=== PATIENT | female | born 1965 | race Caucasian/White ===

== ENCOUNTER 2018-01-27 14:23 | Emergency (ER) | payer OTHER ==
[~2018-01-27] VITALS: Ht 172.7 cm; Wt 98.5 kg
[2018-01-27 14:53] VITALS: BP 167/85; PULSE 104; RESP 20; TEMP 99.1; O2SAT 99
[2018-01-27] MEDS ORDERED: VORT1TAB PO (15:05)
--- NOTE | 2018-01-27 15:24 | PD ---
HPI Chief Complaint: Psychiatric Symptoms Time Seen by Provider: 15:06 Travel History International Travel<30 days: No Contact w/Intl Traveler<30days: No Traveled to known affect area: No History of Present Illness HPI 52-year-old female with history of type type 2 diabetes treated with Triceba, and Humalog as well as hypertension treated with Valsarten, comes into the emergency department voluntarily for psychiatric evaluation for feelings of anxiety and depression. She states she has been fighting these feelings for quite some time, but has been worse in the last week and a half. Patient states she saw her primary care physician 2 days ago was started on Trilexa. Patient texted some questionable text to her boyfriend who then had the police to a wellness visit. Patient agreed to come here voluntarily and denied suicidal ideations at this time. She denies any other acute medical issues. She is allergic to penicillin PFSH Past Medical History Anxiety: Yes Depression: Yes ?: Unknown LMP: 6 years ago Social History Alcohol Use: Yes (socially) Tobacco Use: No Substance Use: No Allergies-Medications (Allergen,Severity, Reaction): Coded Allergies: Penicillins (Verified Allergy, Severe, Anaphylaxis, 01/27/18) Reported Meds & Prescriptions Reported Meds & Active Scripts Active Reported Trintellix (Vortioxetine) 5 Mg Tab 5 Mg PO DAILY Review of Systems Except as stated in HPI: all other systems reviewed are Neg General / Constitutional: No: Fever Eyes: No: Visual changes HENT: No: Headaches Cardiovascular: No: Chest Pain or Discomfort Respiratory: No: Shortness of Breath Gastrointestinal: No: Abdominal Pain Genitourinary: No: Dysuria Musculoskeletal: No: Pain Skin: No Rash Neurologic: No: Weakness Psychiatric: Positive: Anxiety, Depression, No: Suicidal Ideations, Homicidal Ideation Endocrine: No: Polydipsia Hematologic/Lymphatic: No: Easy Bruising Physical Exam Narrative GENERAL: Patient appears anxious and mildly tearful. SKIN: Warm and dry. Normal color. Normal turgor. HEAD: Atraumatic. Normocephalic. EYES: Pupils equal and round. No scleral icterus. No injection or drainage. ENT: No nasal bleeding or discharge. Mucous membranes pink and moist. Pharynx is clear. Airways patent NECK: Trachea midline. Supple and nontender. CARDIOVASCULAR: Regular rate and rhythm. RESPIRATORY: No accessory muscle use. Clear to auscultation. Breath sounds equal bilaterally. GASTROINTESTINAL: Abdomen soft, non-tender, nondistended. Hepatic and splenic margins not palpable. MUSCULOSKELETAL: Extremities without clubbing, cyanosis, or edema. No obvious deformities. NEUROLOGICAL: Awake and alert. No obvious cranial nerve deficits. Motor grossly within normal limits. Five out of 5 muscle strength in the arms and legs. Normal speech. PSYCHIATRIC: Appropriate mood and affect; insight and judgment normal. Data Data Last Documented VS Vital Signs Date Time Temp Pulse Resp B/P (MAP) Pulse Ox O2 Delivery O2 Flow Rate FiO2 01/27/18 14:53 99.1 104 20 167/85 (112) 99 Orders Orders Complete Blood Count With Diff (01/27/18 15:19) Comprehensive Metabolic Panel (01/27/18 15:19) Thyroid Stimulating Hormone (01/27/18 15:19) Urinalysis - C+S If Indicated (01/27/18 15:19) Psych Screen (01/27/18 15:19) Drug Screen, Random Urine (01/27/18 15:19) Alcohol (Ethanol) (01/27/18 15:19) Urine Culture (01/27/18 15:24) Nitrofurantoin Monohyd Macrocr (Macrobid (01/27/18 16:30) Ceftriaxone Inj (Rocephin Inj) (01/27/18 16:45) Lidocaine 1% Inj (50 Ml) (Xylocaine 1% I (01/27/18 16:45) Diet Diabetic (01/27/18 Dinner) Labs Laboratory Tests Test 01/27/18 15:24 White Blood Count 4.6 TH/MM3 Red Blood Count 5.92 MIL/MM3 Hemoglobin 14.9 GM/DL Hematocrit 44.3 % Mean Corpuscular Volume 74.8 FL Mean Corpuscular Hemoglobin 25.2 PG Mean Corpuscular Hemoglobin Concent 33.7 % Red Cell Distribution Width 15.5 % Platelet Count 217 TH/MM3 Mean Platelet Volume 7.9 FL Neutrophils (%) (Auto) 66.2 % Lymphocytes (%) (Auto) 22.6 % Monocytes (%) (Auto) 8.5 % Eosinophils (%) (Auto) 2.2 % Basophils (%) (Auto) 0.5 % Neutrophils # (Auto) 3.0 TH/MM3 Lymphocytes # (Auto) 1.0 TH/MM3 Monocytes # (Auto) 0.4 TH/MM3 Eosinophils # (Auto) 0.1 TH/MM3 Basophils # (Auto) 0.0 TH/MM3 CBC Comment DIFF FINAL Differential Comment Urine Color YELLOW Urine Turbidity HAZY Urine pH 5.0 Urine Specific [place] 1.029 Urine Protein 30 mg/dL Urine Glucose (UA) NEG mg/dL Urine Ketones TRACE mg/dL Urine Occult Blood NEG Urine Nitrite POS Urine Bilirubin NEG Urine Urobilinogen 2.0 MG/DL Urine Leukocyte Esterase LARGE Urine RBC 7 /hpf Urine WBC 97 /hpf Urine Squamous Epithelial Cells 2 /hpf Urine Amorphous Sediment RARE Urine Bacteria MANY /hpf Urine Hyaline Casts 7 /lpf Urine Mucus MANY /lpf Microscopic Urinalysis Comment CULTURE INDICATED Blood Urea Nitrogen 14 MG/DL Creatinine 0.79 MG/DL Random Glucose 99 MG/DL Total Protein 7.8 GM/DL Albumin 4.2 GM/DL Calcium Level 9.5 MG/DL Alkaline Phosphatase 119 U/L Aspartate Amino Transf (AST/SGOT) 20 U/L Alanine Aminotransferase (ALT/SGPT) 27 U/L Total Bilirubin 0.4 MG/DL Sodium Level 143 MEQ/L Potassium Level 3.7 MEQ/L Chloride Level 109 MEQ/L Carbon Dioxide Level 19.9 MEQ/L Anion Gap 14 MEQ/L Estimat Glomerular Filtration Rate 77 ML/MIN Thyroid Stimulating Hormone 3rd Gen 1.320 uIU/ML Urine Opiates Screen NEG Urine Barbiturates Screen NEG Urine Amphetamines Screen NEG Urine Benzodiazepines Screen NEG Urine Cocaine Screen NEG Urine Cannabinoids Screen NEG Ethyl Alcohol Level LESS THAN 3 MG/DL MDM Medical Decision Making Medical Screen Exam Complete: Yes Emergency Medical Condition: Yes Differential Diagnosis Anxiety. Depression. Need for psychiatric evaluation Narrative Course Psychiatric labs ordered per protocol. Psych screen is ordered. CBC is unremarkable. CMP showed no significant findings. Urinalysis shows signs of infection with culture pending Patient is given Rocephin 1 g IM. Patient is medically cleared for psychiatric evaluation Diagnosis Primary Impression: Urinary tract infection Qualified Codes: N30.00 - Acute cystitis without hematuria Additional Impression: Medical clearance for psychiatric admission Patient Instructions: Dysuria (ED), General Instructions Condition: Stable Neville Marcus Jan 27, 2018 15:24
[2018-01-27 16:08] LABS: BASOPHIL % 0.5 % (0.0-2.0); EOSINOPHIL # 0.1 TH/MM3 (0-0.4); EOSINOPHIL % 2.2 % (0.0-4.0); HEMATOCRIT 44.3 % (35.0-46.0); HEMOGLOBIN 14.9 GM/DL (11.6-15.3); LYMPH % 22.6 % (9.0-44.0); MEAN CELL VOLUME 74.8 FL (80.0-100.0); MEAN CORPUSCULAR HEMOGLOBIN 25.2 PG (27.0-34.0); MEAN CORPUSCULAR HGB CONC 33.7 % (32.0-36.0); MEAN PLATELET VOLUME 7.9 FL (7.0-11.0); MONO % 8.5 % (0.0-8.0); MONOCYTE # 0.4 TH/MM3 (0-0.9); NEUT % 66.2 % (16.0-70.0); PLATELET COUNT 217 TH/MM3 (150-450); RED BLOOD COUNT 5.92 MIL/MM3 (4.00-5.30); RED CELL DISTRIBUTION WIDTH 15.5 % (11.6-17.2); WHITE BLOOD COUNT 4.6 TH/MM3 (4.0-11.0)
[2018-01-27 16:10] LABS: AMORPHOUS SEDIMENT, URINE RARE; BACTERIA, URINE MANY /hpf; BILIRUBIN, URINE NEG (NEG); BLOOD, URINE NEG (NEG); GLUCOSE,URINE NEG (NEG); HYALINE CAST, URINE 7 /lpf (RARE); KETONE, URINE TRACE mg/dL (NEG); MUCUS URINE MANY /lpf (OCC); NITRITE,URINE POS (NEG); SQUAMOUS EPITHELIAL CELL URINE 2 /hpf (0-5); URINE COLOR YELLOW (YELLW/STRAW); URINE LEUKOCYTE ESTERASE LARGE (NEG)
[2018-01-27 16:30] LABS: ALBUMIN 4.2 GM/DL (3.4-5.0); ALT (GPT) 27 U/L (10-53); AST (GOT) 20 U/L (15-37); BICARBONATE 19.9 MEQ/L (21.0-32.0); BLOOD UREA NITROGEN 14 MG/DL (7-18); CALCIUM 9.5 MG/DL (8.5-10.1); CHLORIDE 109 MEQ/L (98-107); CREATININE 0.79 MG/DL (0.50-1.00); GLOMERULAR FILTRATION RATE 77 ML/MIN (>89); GLUCOSE,RANDOM 99 MG/DL (74-106); SODIUM (NA) 143 MEQ/L (136-145)
[2018-01-27] MEDS ORDERED: NITROFURANTOIN MONOHYD MACROCR 100 MG CAP PO ONE (16:30)
[2018-01-27 16:40] LABS: ALKALINE PHOSPHATASE 119 U/L (45-117); TOTAL BILIRUBIN ADULT 0.4 MG/DL (0.2-1.0); TOTAL PROTEIN 7.8 GM/DL (6.4-8.2)
[2018-01-27] MEDS ORDERED: LIDOCAINE HCL 1% 50 ML VIAL INFIL ONE (16:45)
--- NOTE | 2018-01-27 18:48 | PD ---
History of Present Illness Chief Complaint: Psychiatric Symptoms Time Seen by Provider: 18:25 Travel History International Travel<30 Days: No Contact w/Intl Traveler<30days: No Known affected area: No Legal Status Legal Status: Voluntary History of Present Illness: History of Present Illness HPI 52-year-old , female with medical history of type type 2 diabetes treated with Triceba, and Humalog as well as hypertension treated with Valsarten, history of 1 previous episode of depression who comes into the emergency department voluntarily for psychiatric evaluation. 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 She saw her primary care physician who started her on Trintellix 2 days ago for treatment of her symptoms of depression. She states that she had a difficult weekend with feeling overwhelmed and depressed. She sent some text messages to her boyfriend who had the police do a wellness visit. They did not place her under a Hay act and the patient came to the ED for evaluation. The patient has been on medical leave from her job and is due to return to work tomorrow. Electronic medical record is reviewed. No previous contact with [facility] psychiatry Department. Current toxicology is negative for any substances of abuse. Patient is alert and oriented, engaging and cooperative. Affect is tearful. Appropriate eye contact. Speech is clear and logical, of normal rate and rhythm. Mood is depressed. She reports feeling slightly more anxious since she started the medication 2 days ago. There is no evidence of any hallucinations, no delusions, no paranoia. There is no suicidal or homicidal ideation. She does endorse passive wishes. No previous history of suicide attempt. Sleeping fair, low level of energy, feels overwhelmed at times. Remainder of psychiatric review of system is negative. Patient verbalizes her feelings in an appropriate manner. She has taken steps to help her current symptoms including getting medication, has made an appointment for therapy in 2 weeks. She has also reached out to her stepdad who she says is supportive as well as a friend in [place]. [facility] Past Medical History Anxiety: Yes Depression: Yes ?: Unknown LMP: 6 years ago Psychiatric History Psychiatric History Hx Psychiatric Treatment: Patient received antidepressant 1 previous occasion but did not continue medication. No history of suicide attempts. No history of self-injurious behavior. Has an appointment for outpatient therapy in 2 weeks History of Inpatient Treatment: No Guns or firearms in home: No Social History Patient is born and raised in [place]. She has a masters degree in social work. She is after 11 years of marriage. The divorce happened 2 years ago. She has no children. She moved to [place] 2 years ago. Lives by herself. 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 Reports her brother of alcohol related issues in 2009. Hx Alcohol Use: Yes (socially. Denies current use of alcohol) Hx Tobacco Use: No Hx Substance Use: No Hx of Substance Use Treatment: No Family Psychiatric History Significant family history of alcohol use disorder. Allergies-Medications (Allergen,Severity, Reaction): Coded Allergies: Penicillins (Verified Allergy, Severe, Anaphylaxis, 01/27/18) Reported Meds & Prescriptions Reported Meds & Active Scripts Active Reported Trintellix (Vortioxetine) 5 Mg Tab 5 Mg PO DAILY Review of Systems Psychiatric: COMPLAINS OF: Anxiety, Depression Except as stated in HPI: all other systems reviewed are Neg Mental Status Examination Appearance: Appropriate (Jeans and T shirt) Consciousness: Alert Orientation: x4 Motor Activity: Other (in bed) Speech: Unremarkable Language: Adequate Fund of Knowledge: Adequate Attention and Concentration: Adequate Memory: Unremarkable Mood: Sad, Anxious Affect: Appropriate Thought Process & Associations: Intact, Logical, Goal directed Thought Content: Appropriate Hallucination Type: None Delusion Type: None Suicidal Ideation: No (pasive suicidal ideation) Suicidal Plan: No Suicidal Intention: No Homicidal Ideation: No Homicidal Plan: No Homicidal Intention: No Insight: Adequate Judgment: Adequate MDM Medical Decision Making Medical Record Reviewed: Yes Assessment/Plan 52-year-old , female with medical history of type type 2 diabetes treated with Triceba, and Humalog as well as hypertension treated with Valsarten, history of 1 previous episode of depression who comes into the emergency department voluntarily for psychiatric evaluation. 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 She saw her primary care physician who started her on Trintellix 2 days ago for treatment of her symptoms of depression. The patient began the medication and reports that she has been feeling slightly more anxious. She endorses passive wishes. No suicidal ideation no intent and no plan. She may be certainly feeling some side effects associated with a serotonin reuptake inhibitor medication. The patient is provided psychoeducation and support. Patient is referred to grief share. She is encouraged to maintain appointment with her outpatient therapist in 2 weeks. She is advised to return to the emergency department if any changes. She contracts for safety. Patient is psychiatric clear for discharge from the ED. Orders Orders Complete Blood Count With Diff (01/27/18 15:19) Comprehensive Metabolic Panel (01/27/18 15:19) Thyroid Stimulating Hormone (01/27/18 15:19) Urinalysis - C+S If Indicated (01/27/18 15:19) Psych Screen (01/27/18 15:19) Drug Screen, Random Urine (01/27/18 15:19) Alcohol (Ethanol) (01/27/18 15:19) Urine Culture (01/27/18 15:24) Nitrofurantoin Monohyd Macrocr (Macrobid (01/27/18 16:30) Ceftriaxone Inj (Rocephin Inj) (01/27/18 16:45) Lidocaine 1% Inj (50 Ml) (Xylocaine 1% I (01/27/18 16:45) Diet Diabetic (01/27/18 Dinner) Results Vital Signs Date Time Temp Pulse Resp B/P (MAP) Pulse Ox O2 Delivery O2 Flow Rate FiO2 01/27/18 14:53 99.1 104 20 167/85 (112) 99 Laboratory Tests Test 01/27/18 15:24 White Blood Count 4.6 Red Blood Count 5.92 Hemoglobin 14.9 Hematocrit 44.3 Mean Corpuscular Volume 74.8 Mean Corpuscular Hemoglobin 25.2 Mean Corpuscular Hemoglobin Concent 33.7 Red Cell Distribution Width 15.5 Platelet Count 217 Mean Platelet Volume 7.9 Neutrophils (%) (Auto) 66.2 Lymphocytes (%) (Auto) 22.6 Monocytes (%) (Auto) 8.5 Eosinophils (%) (Auto) 2.2 Basophils (%) (Auto) 0.5 Neutrophils # (Auto) 3.0 Lymphocytes # (Auto) 1.0 Monocytes # (Auto) 0.4 Eosinophils # (Auto) 0.1 Basophils # (Auto) 0.0 CBC Comment DIFF FINAL Differential Comment Urine Color YELLOW Urine Turbidity HAZY Urine pH 5.0 Urine Specific [place] 1.029 Urine Protein 30 Urine Glucose (UA) NEG Urine Ketones TRACE Urine Occult Blood NEG Urine Nitrite POS Urine Bilirubin NEG Urine Urobilinogen 2.0 Urine Leukocyte Esterase LARGE Urine RBC 7 Urine WBC 97 Urine Squamous Epithelial Cells 2 Urine Amorphous Sediment RARE Urine Bacteria MANY Urine Hyaline Casts 7 Urine Mucus MANY Microscopic Urinalysis Comment CULTURE INDICATED Blood Urea Nitrogen 14 Creatinine 0.79 Random Glucose 99 Total Protein 7.8 Albumin 4.2 Calcium Level 9.5 Alkaline Phosphatase 119 Aspartate Amino Transf (AST/SGOT) 20 Alanine Aminotransferase (ALT/SGPT) 27 Total Bilirubin 0.4 Sodium Level 143 Potassium Level 3.7 Chloride Level 109 Carbon Dioxide Level 19.9 Anion Gap 14 Estimat Glomerular Filtration Rate 77 Thyroid Stimulating Hormone 3rd Gen 1.320 Urine Opiates Screen NEG Urine Barbiturates Screen NEG Urine Amphetamines Screen NEG Urine Benzodiazepines Screen NEG Urine Cocaine Screen NEG Urine Cannabinoids Screen NEG Ethyl Alcohol Level LESS THAN 3 Date/Time Source Procedure Growth Status 01/27/18 15:24 Urine Random Urine Urine Culture Pending Received Diagnosis Primary Impression: Urinary tract infection Additional Impressions: Medical clearance for psychiatric admission Adjustment disorder Psychiatrically Cleared: Yes Patient Instructions: General Instructions, Dysuria (ED) Additional Instructions: Follow up with outpatient therapy. Follow up with [facility] Prescriptions Nitrofurantoin Monohydrate Macrocrystals (Macrobid) 100 Mg Capsule 100 MG PO BID for Infection for 7 Days, #14 CAP 0 Refills Prov: Candida Cardenas MD 01/27/18 Disposition: 01 DISCHARGE HOME Condition: Stable Problem Qualifiers Primary Impression: Urinary tract infection Qualified Codes: N30.00 - Acute cystitis without hematuria Additional Impressions: Adjustment disorder Qualified Codes: F43.23 - Adjustment disorder with mixed anxiety and depressed mood Cira Montiel Jan 27, 2018 18:47
[2018-01-27] MEDS ORDERED: MACR100C2 PO (19:15)
--- NOTE | 2018-01-27 19:18 | PD ---
Data Data Last Documented VS Vital Signs Date Time Temp Pulse Resp B/P (MAP) Pulse Ox O2 Delivery O2 Flow Rate FiO2 01/27/18 14:53 99.1 104 20 167/85 (112) 99 Orders Orders Complete Blood Count With Diff (01/27/18 15:19) Comprehensive Metabolic Panel (01/27/18 15:19) Thyroid Stimulating Hormone (01/27/18 15:19) Urinalysis - C+S If Indicated (01/27/18 15:19) Psych Screen (01/27/18 15:19) Drug Screen, Random Urine (01/27/18 15:19) Alcohol (Ethanol) (01/27/18 15:19) Urine Culture (01/27/18 15:24) Nitrofurantoin Monohyd Macrocr (Macrobid (01/27/18 16:30) Ceftriaxone Inj (Rocephin Inj) (01/27/18 16:45) Lidocaine 1% Inj (50 Ml) (Xylocaine 1% I (01/27/18 16:45) Diet Diabetic (01/27/18 Dinner) Labs Laboratory Tests Test 01/27/18 15:24 White Blood Count 4.6 TH/MM3 Red Blood Count 5.92 MIL/MM3 Hemoglobin 14.9 GM/DL Hematocrit 44.3 % Mean Corpuscular Volume 74.8 FL Mean Corpuscular Hemoglobin 25.2 PG Mean Corpuscular Hemoglobin Concent 33.7 % Red Cell Distribution Width 15.5 % Platelet Count 217 TH/MM3 Mean Platelet Volume 7.9 FL Neutrophils (%) (Auto) 66.2 % Lymphocytes (%) (Auto) 22.6 % Monocytes (%) (Auto) 8.5 % Eosinophils (%) (Auto) 2.2 % Basophils (%) (Auto) 0.5 % Neutrophils # (Auto) 3.0 TH/MM3 Lymphocytes # (Auto) 1.0 TH/MM3 Monocytes # (Auto) 0.4 TH/MM3 Eosinophils # (Auto) 0.1 TH/MM3 Basophils # (Auto) 0.0 TH/MM3 CBC Comment DIFF FINAL Differential Comment Urine Color YELLOW Urine Turbidity HAZY Urine pH 5.0 Urine Specific [place] 1.029 Urine Protein 30 mg/dL Urine Glucose (UA) NEG mg/dL Urine Ketones TRACE mg/dL Urine Occult Blood NEG Urine Nitrite POS Urine Bilirubin NEG Urine Urobilinogen 2.0 MG/DL Urine Leukocyte Esterase LARGE Urine RBC 7 /hpf Urine WBC 97 /hpf Urine Squamous Epithelial Cells 2 /hpf Urine Amorphous Sediment RARE Urine Bacteria MANY /hpf Urine Hyaline Casts 7 /lpf Urine Mucus MANY /lpf Microscopic Urinalysis Comment CULTURE INDICATED Blood Urea Nitrogen 14 MG/DL Creatinine 0.79 MG/DL Random Glucose 99 MG/DL Total Protein 7.8 GM/DL Albumin 4.2 GM/DL Calcium Level 9.5 MG/DL Alkaline Phosphatase 119 U/L Aspartate Amino Transf (AST/SGOT) 20 U/L Alanine Aminotransferase (ALT/SGPT) 27 U/L Total Bilirubin 0.4 MG/DL Sodium Level 143 MEQ/L Potassium Level 3.7 MEQ/L Chloride Level 109 MEQ/L Carbon Dioxide Level 19.9 MEQ/L Anion Gap 14 MEQ/L Estimat Glomerular Filtration Rate 77 ML/MIN Thyroid Stimulating Hormone 3rd Gen 1.320 uIU/ML Urine Opiates Screen NEG Urine Barbiturates Screen NEG Urine Amphetamines Screen NEG Urine Benzodiazepines Screen NEG Urine Cocaine Screen NEG Urine Cannabinoids Screen NEG Ethyl Alcohol Level LESS THAN 3 MG/DL MDM Medical Record Reviewed: Yes Supervised Visit with STONE[facility]: No Narrative Course See previous providers notes for complete history of present illness. This patient has been cleared by psychiatry. She has no medical issues that warrant further hospitalization. She feels safe and comfortable with discharge and outpatient follow-up for further evaluation of her anxiety and depression. Her urinalysis is suggestive of UTI. She was given a dose of Rocephin earlier in the day. Pending culture results she will be given a prescription for Macrobid. Diagnosis Primary Impression: Urinary tract infection Qualified Codes: N30.00 - Acute cystitis without hematuria Additional Impression: Medical clearance for psychiatric admission Patient Instructions: General Instructions, Dysuria (ED) Departure Forms: Tests/Procedures, Work Release Enter return to work date: Feb 03, 2018 Additional Instruction: Medication as prescribed. Follow-up with primary care physician and psychiatrist and then as needed basis and return for any emergent medical conditions. Med/Other Pt SpecificInfo: Prescription(s) given Scripts Nitrofurantoin Monohydrate Macrocrystals (Macrobid) 100 Mg Capsule 100 MG PO BID for Infection for 7 Days, #14 CAP 0 Refills Prov: Candida Cardenas MD 01/27/18 Disposition: 01 DISCHARGE HOME Condition: Stable Max Francis Jan 27, 2018 19:18
== END 2018-01-27 19:26 | disposition home or self-care (01) ==
LOC: NEPD 14:23
DX: N30.00 Acute cystitis without hematuria (principal); F43.23 Adjustment disorder with mixed anxiety and depressed mood; I10 Essential (primary) hypertension; Z79.899 Other long term (current) drug therapy
CPT/HCPCS: 80053; 80307; 81001; 84443; 85025; 87077; 87086; 87186; 96372; 99283; J0696